=== PATIENT | female | born 1995 | race Caucasian/White ===

== ENCOUNTER 2018-05-30 06:28 | Emergency (ER) | END 2018-05-30 07:03 | disposition home or self-care (01) ==

== ENCOUNTER 2018-06-20 19:50 | Emergency (ER) | END 2018-06-20 20:14 | disposition home or self-care (01) ==

== ENCOUNTER 2018-06-20 20:20 | Outpatient (CLI) | END 2018-06-20 22:27 | disposition home or self-care (01) ==

== ENCOUNTER 2018-10-02 14:36 | Inpatient (IN) | payer MEDICAID ==
[~2018-10-02] VITALS: Ht 142.2 cm; Wt 63.1 kg
[~2018-10-02 14:36] MED LIST: PREN-93 PO
[2018-10-02 14:59] VITALS: BP 116/67; PULSE 83; RESP 20; Ht 142.2 cm; Wt 63.1 kg
--- NOTE | 2018-10-02 17:46 | TRIAGE ---
OB Triage Datetime Report Generated by CPN: 10/02/2018 17:45 Datetime: 10/02/2018 17:36 Vaginal Exam Dilatation (cms): 3.0 Effacement (%): 80 Station: -2 Exam By: timothy Membrane Status: Intact Vaginal Bleeding: Normal Show Cervix, Consistency: Soft Cervix, Position: Posterior Presentation 'A': Cephalic Datetime: 10/02/2018 16:26 Labor Evaluation Frequency: 1-5 Monitor Mode: External Duration (sec)2399: 50-100 Quality: Mild Pattern: Normal: <= 5 Contractions in 10 Minutes Resting Tone Amistad: Relaxed Heart Rate FHR Baseline Rate: 130 Monitor Mode: External US Variability: Moderate 6-25 bpm Accelerations: 15X15 Decelerations: None Category: Category I Datetime: 10/02/2018 16:00 Labor Evaluation Frequency: 4-8 Monitor Mode: External Duration (sec)2399: 50-100 Quality: Mild Pattern: Normal: <= 5 Contractions in 10 Minutes Resting Tone Amistad: Relaxed Heart Rate FHR Baseline Rate: 135 Monitor Mode: External US Variability: Moderate 6-25 bpm Accelerations: 15X15 Decelerations: None Category: Category I Datetime: 10/02/2018 15:47 Comments: US AT BEDSIDE Datetime: 10/02/2018 15:45 Comments: U/S TECH AT BEDSIDE Datetime: 10/02/2018 15:00 Labor Evaluation Frequency: 1-6 Monitor Mode: External Duration (sec)2399: 30-100 Quality: Mild Pattern: Normal: <= 5 Contractions in 10 Minutes Resting Tone Amistad: Relaxed Heart Rate FHR Baseline Rate: 135 Monitor Mode: External US Variability: Moderate 6-25 bpm Accelerations: 15X15 Decelerations: None Category: Category I Datetime: 10/02/2018 14:37 Time of Arrival: 10/02/2018 14:18 EGA: 38.6 Arrived By: Wheelchair Arrived From: Home Chief Complaint: UCS Movement: Present Contractions: Regular Time Contractions Began: 10/02/2018 05:00 Contractions: 5 MIN Rupture of Membranes: Denies Vaginal Bleeding: None Vaginal Discharge: Denies Recent Sexual Intercouse: Denies Abdominal Trauma: Not Applicable Patient Complaints: Contractions Time Provider Notified: 10/02/2018 15:16 Provider Notified: HADADIAN Initial Plan: NST, SVE Vaginal Exam Dilatation (cms): 1.5 Effacement (%): 50 Station: -2 Exam By: TIMOTHY Datetime: 10/02/2018 14:35 Assessment Type: Triage Maternal Assessment Level of Consciousness: Fully Conscious DTR's/Clonus: DTRs 2+; No Clonus Headache: Denies Blurred Vision: No Respiratory Effort: Unlabored; Regular Rhythm; Equal Expansion Breath Sounds, Left: Clear and Equal Breath Sounds, Right: Clear and Equal Nausea/Vomiting: Denies RUQ Epigastric Pain: Denies Lower Extremities Edema: None Degree: None Upper Extremities Edema: None Degree: None Facial Edema: None Fall Risk Assessment History of Falling: (0) No Secondary Diagnosis: (0) No Ambulatory Aid: (0) Bedrest/Nurse Assist IV Therapy: (0) No Gait: (0) Normal/Bedrest/Immobile Mental Status: (0) Oriented to Own Ability Fall Score: 0 Fall Risk Score Definition: No Risk: No action required Datetime: 06/20/2018 20:29 Fall Score: 0 Fall Risk Score Definition: No Risk: No action required Datetime: 06/20/2018 20:23 EGA: 24.0
--- NOTE | 2018-10-02 17:50 | HP ---
Date/Time of Note Date/Time of Note DATE: 10/02/18 TIME: 17:47 OB - History Hx of Present Free Text/Dictation 23-year-old 2 para 1 at 38 weeks and 6 days of gestation with estimated date of delivery October 10, 2018 Patient presents with regular contractions She reports positive movement, denies any vaginal bleeding or leaking fluid GBS status is unknown : 2 Para: 1 Care: Good Care Obstetrical Complications: None Medical Complications: None Past Family/Social History * Past Medical, Surgical, Family and Obstetric Histories reviewed from chart. OB Admission Exam Vital Signs Vital Signs Vital Signs Date Temp Pulse Resp B/P (MAP) Pulse Ox O2 O2 Flow FiO2 Time Delivery Rate 10/02/18 97.7 83 20 116/67 Room Air 14:59 (83) Physical Exam HEENT: WNL Heart: Rhythm Normal Lungs: Clear, Equal Abdomen: WNL Extremities: Normal Reflexes: Normal Cervical Dilatation: 3cm Effacement: 75% Station: -2 Membranes: Intact Heart Rate: 140's Accelerations: Accelerations Present Decelerations: No Decelerations Varibility: Moderate Contractions on Admission: < 5 Minutes Apart Intensity: Moderate Last 72 hours Lab Results PROCEDURE: US OB biophysical profile. CLINICAL INDICATION: decreased movements, pain TECHNIQUE: Multiple sonographic images of the pelvis were obtained. The images were reviewed on a PACS workstation. COMPARISON: No prior studies are available for comparison. FINDINGS: There is a single live intrauterine gestation. Cardiac activity is present with 132 beats per minute. There is a vertex presentation. The placenta is anterior. There is no evidence of placental abruption. There is a normal amount of amniotic fluid with an SHERICE = 12.5 cm. Biophysical profile: movement 2/2 tone 2/2. breathing 2/2 SHERICE 2/2 Total 88 RPTAT: AA . IMPRESSION: Normal biophysical profile. . .Ramon Alejandro MD, Date Time Electronically viewed and signed by .Ramon Alejandro MD, MD on 10/02/2018 16:04 .S/ CC: PAUL ALVES [id number] PROCEDURE: Obstetrical ultrasound. CLINICAL INDICATION: , evaluation. Pelvic pain. TECHNIQUE: Transabdominal sonographic images of the uterus obtained after first trimester, greater than 14 weeks gestation. Single intrauterine gestation present. Complete anatomic survey is not performed in this examination; if needed an additional dedicated examination can be performed for complete anatomic survey. COMPARISON: US PELVIS 10/02/2018 FINDINGS: Single intrauterine gestation. There is a cephalic presentation. Measurements were made in order to determine age. The results are as follows: BPD = 35 weeks 3 day(s) HC = 37 weeks 2 day(s) AC = 37 weeks 5 day(s) FL = 35 weeks 3 day(s) SHERICE (cm) = not measured Heart rate = 137 beats per minute The placenta is anterior. There is no evidence for an abruption or placenta previa. Ovaries are not visualized. IMPRESSION: Single intrauterine gestation of approximately 36 weeks 3days by ultrasound criteria. [place] estimated weight = 3044 g; 20 percentile for gestational age of 38 weeks 6 days. RPTAT: AADD .Stalin Mason MD, MD Date Time Electronically viewed and signed by .Stalin Mason MD, MD on 10/02/2018 19:54 .B/ CC: PAUL ALVES [phone] OB Assessment/Plan Reason for admission: active labor Induction Method: per Pitocin Protocol Other plan: Admit to labor and delivery Antibiotics for GBS prophylaxis Oxytocin augmentation Pain meds as needed YOSSI KINSEY MD Oct 02, 2018 17:50
[2018-10-02] MEDS ORDERED: OXYTOCIN 30 UNITS/LR 500 ML IV PRN (18:00)
[2018-10-02] MEDS ORDERED: BUTORPHANOL 2 MG INJ IV PRN (18:00)
[2018-10-02] MEDS ORDERED: METHYLERGONOVINE 0.2 MG INJ IM PRN (18:00)
[2018-10-02] MEDS ORDERED: IBUPROFEN 600 MG TAB PO PRN (18:00)
[2018-10-02] MEDS ORDERED: CARBOPROST 250 MCG INJ IM PRN (18:00)
[2018-10-02] MEDS ORDERED: MISOPROSTOL 200 MCG TAB PR PRN (18:00)
[2018-10-02] MEDS ORDERED: BUTORPHANOL 1 MG INJ IV PRN (18:00)
[2018-10-02] MEDS ORDERED: OXYTOCIN 30 UNITS/LR 500 ML IV SCH ×3 (18:00)
[2018-10-02] MEDS ORDERED: LIDOCAINE 1% (MPF) 30 ML INJ INJ PRN (18:00)
[2018-10-02] MEDS: LACTATED RINGER'S 1,000 ML IV SCH ×2 (18:30→19:37)
[2018-10-02] MEDS ORDERED: FENTAnyl 2MCG/ML-ROPIV 0.2% 100 ML ONE (19:46)
--- NOTE | 2018-10-02 19:49 | PREAC ---
Date/Time of Note Date/Time of Note DATE: 10/02/18 TIME: 19:48 Anesthesia Eval and Record Evaluation Time Pre-Procedure Interview DATE: 10/02/18 TIME: 19:48 Age 23 Sex female NPO: 8 hrs Preoperative diagnosis IUP Planned procedure L&D Epidural Past Medical History Past Medical History: None Surgery & Anesthesia Issues No known issue Meds Anticoagulation: No Beta Jannette within 24 hr: No Reason Beta Jannette not given: Pt. not on B-Jannette Reported Medications Vit No.124/Iron/FA ( Vitamin Tablet) 1 Each Tablet, 1 EACH PO, TAB 06/20/18 Current Medications Lactated Ringer's 1,000 ml @ 125 mls/hr Q8H IV Last administered on 10/02/18at 19:37; Admin Dose 125 MLS/HR; Start 10/02/18 at 17:45 Butorphanol Tartrate (Stadol) 1 mg Q2H PRN IV .PAIN; Start 10/02/18 at 18:00 Butorphanol Tartrate (Stadol) 2 mg Q2H PRN IV .PAIN; Start 10/02/18 at 18:00 Lidocaine (Xylocaine 1% (Mpf)) 30 ml ONCE PRN INJ .EPISIOTOMY; Start 10/02/18 at 18:00 Oxytocin/Lactated Ringer's 500 ml @ 500 mls/hr ONCE POST IV ; Start 10/02/18 at 18:00 Oxytocin/Lactated Ringer's 500 ml @ 125 mls/hr POST IV ; Start 10/02/18 at 18:00 Ibuprofen (Motrin) 600 mg ONCE PRN PO .PAIN 1-5; Start 10/02/18 at 18:00 Oxytocin/Lactated Ringer's 500 ml @ 0 mls/hr ONCE PRN IV .VAGINAL BLEEDING; Start 10/02/18 at 18:00 Methylergonovine Maleate (Methergine) 0.2 mg ONCE PRN IM .VAGINAL BLEEDING; Start 10/02/18 at 18:00 Carboprost Tromethamine (Hemabate) 250 mcg ONCE PRN IM .VAGINAL BLEEDING; Start 10/02/18 at 18:00 Misoprostol (Cytotec) 1,000 mcg ONCE PRN WI .VAGINAL BLEEDING; Start 10/02/18 at 18:00 Oxytocin/Lactated Ringer's 500 ml @ 0 mls/hr FOR AUGMENTATION IV ; Start 10/02/18 at 18:00 Meds reviewed: Yes Allergies Coded Allergies: No Known Allergy (Unverified , 10/02/18) Allergies Reviewed: Yes Labs/Studies Labs Reviewed: Reviewed by anesthesiologist Result Diagram: 10/02/18 1810 Laboratory Tests 10/02/18 18:10 test: Positive Studies: ECG Pre-procedure Exam Last vitals Vital Signs Date Temp Pulse Resp B/P (MAP) Pulse Ox O2 O2 Flow FiO2 Time Delivery Rate 10/02/18 97.7 83 20 116/67 Room Air 14:59 (83) Airway: Adequate mouth opening, Adequate thyromental dist Mallampati: Mallampati II Teeth: Normal Lung: Normal Heart: Normal ASA Physical Status ASA physical status: 2 Emergency: None Planned Anesthetic Neuraxial: Epidural Planned Pain Management Epidural, Parenteral pain med Pre-operative Attestations Prior to commencing anesthesia and surgery, the patient was re-evaluated, there was verification of: *The patient's identity *The results of appropriate recent lab work and preoperative vital signs *The above evaluation not changing prior to induction *Anesthetic plan, risk benefits, alternative and complications discussed with patient/family; questions answered; patient/family understands, accepts and wishes to proceed. CRISTHIAN BENITEZ MD Oct 02, 2018 19:49
[2018-10-03] MEDS: LACTATED RINGER'S 1,000 ML IV SCH (01:26)
[2018-10-03] MEDS ORDERED: DIPHENHYDRAMINE 50 MG INJ IV PRN (03:30)
[2018-10-03] MEDS ORDERED: NALOXONE (0.4 MG/ML) INJ IV PRN (03:30)
[2018-10-03] MEDS ORDERED: ONDANSETRON 4 MG INJ IV PRN ×2 (03:30→05:00)
[2018-10-03] MEDS ORDERED: FENTAnyl 2MCG/ML-ROPIV 0.2% 100 ML BAG EPI SCH (03:30)
[2018-10-03] MEDS ORDERED: OXYTOCIN 30 UNITS/LR 500 ML IV SCH (04:46)
[2018-10-03] MEDS ORDERED: CARBOPROST 250 MCG INJ IM PRN (05:00)
[2018-10-03] MEDS ORDERED: MAGNESIUM HYDROXIDE 30ML CUP PO PRN (05:00)
[2018-10-03] MEDS ORDERED: MISOPROSTOL 200 MCG TAB PR PRN (05:00)
[2018-10-03] MEDS ORDERED: WITCH HAZEL/GLYCERIN PAD PR PRN (05:00)
[2018-10-03] MEDS ORDERED: DIBUCAINE 1% 30 GM OINT TOP PRN (05:00)
[2018-10-03] MEDS ORDERED: OXYTOCIN 30 UNITS/LR 500 ML IV PRN (05:00)
[2018-10-03] MEDS ORDERED: ACETAMINOPHEN 325 MG TAB PO PRN (05:00)
[2018-10-03] MEDS ORDERED: BENZOCAINE 20% 56 ML SPRAY TOP PRN (05:00)
[2018-10-03] MEDS ORDERED: LANOLIN HPA 1 PKT TOP PRN (05:00)
[2018-10-03] MEDS ORDERED: METHYLERGONOVINE 0.2 MG INJ IM PRN (05:00)
--- NOTE | 2018-10-03 05:28 | LDN ---
Date/Time of Note Date/Time of Note DATE: 10/03/18 TIME: 04:48 Delivery Summary Term gestation Placenta Delivered: Spontaneously Meconium: none Episiotomy: No Laceration repair: Superficial laceration repaired with 4-0 chromic Anesthesia type: Epidural Estimated blood loss: 100 Sponge & Needle done & correct: Yes All needle counts correct: Yes Any foreign bodies felt in the: No Delivery Information Sex Infant Sex: male Apgars 1 Minute: 9 5 Minute: 9 Suctioning Nose & mouth suctioned at chaitanya: Yes Umbilical Cord Umbilical cord with: 3 Vessels Cord presentations: no nuchal cord Cord Blood was obtained: Yes Mother & Baby Disposition Disposition Baby's weight 7 pounds 2 ounces/ 3245 gr Mom & Baby to Maternity; Good: Yes Baby to NICU: No Copies To: CC: PAUL ALVES BAHAREH MD Oct 03, 2018 05:28
[2018-10-03 06:10] VITALS: BP 111/62; PULSE 73; RESP 18
[2018-10-03 07:55] VITALS: BP 106/57; PULSE 84; RESP 16
[2018-10-03] MEDS: SENNA/DOCUSATE NA (8.6MG/50MG) TAB PO PRN ×2 (08:51→21:13)
[2018-10-03] MEDS: IBUPROFEN 600 MG TAB PO PRN ×2 (08:52→15:57)
[2018-10-03] MEDS: LACTATED RINGER'S 1,000 ML IV* SCH ×2 (08:58→13:47)
[2018-10-03 11:44] VITALS: BP 110/73; PULSE 76; RESP 20
[2018-10-03 15:56] VITALS: BP 101/63; PULSE 73; RESP 20
[2018-10-03 20:35] VITALS: BP 114/68; PULSE 79; RESP 18
[2018-10-03] MEDS: ACETAMINOPHEN 325 MG TAB PO PRN (21:13)
[2018-10-04] VITALS: BP 90/59; PULSE 75; RESP 19
[2018-10-04] MEDS: IBUPROFEN 600 MG TAB PO PRN ×4 (01:11→17:45)
[2018-10-04] MEDS: ACETAMINOPHEN 325 MG TAB PO PRN ×2 (01:17→06:30)
[2018-10-04 04:00] VITALS: BP 88/50; PULSE 67; RESP 19
[2018-10-04 08:00] VITALS: BP 97/55; PULSE 85; RESP 18
[2018-10-04] MEDS ORDERED: INFLUENZA VIRUS VACCINE 0.5 ML (DISPENSING) IM* ONE (10:00)
[2018-10-04 16:00] VITALS: BP 89/53; PULSE 70; RESP 18
[2018-10-04 19:07] VITALS: BP 122/75; RESP 18
[2018-10-04 20:50] VITALS: BP 89/53; PULSE 75; RESP 18
[2018-10-05] MEDS: IBUPROFEN 600 MG TAB PO PRN ×2 (00:11→12:04)
[2018-10-05 04:00] VITALS: BP 92/56; PULSE 65; RESP 17
[2018-10-05] MEDS: ACETAMINOPHEN 325 MG TAB PO PRN (06:00)
--- NOTE | 2018-10-05 10:51 | PAC ---
Date/Time of Note Date/Time of Note DATE: 10/05/18 TIME: 10:50 Post-Anesthesia Notes Post-Anesthesia Note Last documented vital signs Vital Signs Date Temp Pulse Resp B/P (MAP) Pulse Ox O2 O2 Flow FiO2 Time Delivery Rate 10/05/18 98.0 65 17 92/56 (68) Room Air 04:00 Activity: WNL Respiratory function: WNL Cardiovascular function: WNL Mental status: Baseline Pain reasonably controlled: Yes Hydration appropriate: Yes Nausea/Vomiting absent: Yes Comments BP:112/56, P:78, spo2:100%, T:98,8 CRISTHIAN BENITEZ MD Oct 05, 2018 10:51
--- NOTE | 2018-10-06 21:30 | PN ---
Date/Time of Note Date/Time of Note DATE: 10/06/18 TIME: 21:27 OB Subjective Subjective Subjective Late entry note. Patient seen on 10/04/2018 PPD# 1 Patient is doing well. She denies nausea, vomiting, shortness of breath, chest pain, headache. She has been ambulating without difficulty, tolerating regular diet. Pain is well controlled on current medications OB Objective Objective Objective General: AAO X 3, comfortable, NAD, appropriate mood and affect. ABD: +BS. Soft, non-tender. Uterus 2 cm below umbilicus Flank: No CVA tenderness (B/L) LE: Mild edema. No clubbing, cyanosis, thigh or calf tenderness (B/L). Homans 'sign is negative OB Assessment/Plan Other plan: 23-year-old 2 para 2002 s/p normal vaginal delivery at 38 weeks and 6 days. PPD#1 - AF, VSS - Contraception methods with R/B/A/FR discussed - Continue care - Discharge home tomorrow - Rx and instruction given - Follow up in 2 and 6 weeks at clinic PAUL ALVES Oct 06, 2018 21:30
--- NOTE | 2018-10-06 21:33 | DS ---
Date/Time of Note Date/Time of Note DATE: 10/06/18 TIME: 21:32 Obstetrical Discharge Record Final Diagnosis Final Diagnosis: Term delivered Other Final Diagnosis Late entry note. Patient seen on 23-year-old 2 para 2002 s/p normal vaginal delivery at 38 weeks and 6 days. PPD#2. She is ambulating and tolerating regular she is voiding without difficulty. Pain is controlled on current medication. - AF, VSS - Contraception methods with R/B/A/FR discussed - Continue care - Discharge home tomorrow - Rx and instruction given - Follow up in 2 and 6 weeks at clinic Vaginal Delivery Obstetrical Delivery: Spontaneous Condition on Discharge Physical Assessment Voiding: Yes Bowel Movement: Yes Breast: Soft, non-tender Fundus: Firm Calf Tenderness: No Patient Condition: Stable PAUL ALVES Oct 06, 2018 21:33
== END 2018-10-05 16:40 | disposition home or self-care (01) | DRG 807 ==
LOC: OBT 14:36 → L-D 14:36 → OBT 17:40 → PP1 10-03 06:30
PROVIDERS: ADMIT Obstetrics & Gynecology; ATTEND Obstetrics & Gynecology
PROC: 10E0XZZ Delivery of Products of Conception, External Approach (ICD-10-PCS; principal; 2018-10-03)
PROC: 0HQ9XZZ Repair Perineum Skin, External Approach (ICD-10-PCS; 2018-10-03)
DX: O70.0 First degree perineal laceration during delivery (principal); Z37.0 Single live birth; Z3A.38 38 weeks gestation of pregnancy
CPT/HCPCS: 62319; 76815; 76818; 81001; 85025; 85610; 85730; 86592; 86850; 86900; 86901; 87086; 87340; G0463; J2590; J3010; J7120

== ENCOUNTER 2018-12-10 02:51 | Emergency (ER) | payer MEDICAID ==
[~2018-12-10] VITALS: Ht 154.9 cm; Wt 55.6 kg
[2018-12-10 02:56] VITALS: RESP 17; Ht 154.9 cm; Wt 55.6 kg
[2018-12-10] MEDS ORDERED: ACETAMINOPHEN 500 MG TAB PO STA (04:09)
[2018-12-10] MEDS ORDERED: IBUPROFEN 600 MG TAB PO ONE (04:30)
[2018-12-10] MEDS ORDERED: DEXAMETHASONE 10 MG/ML 1 ML INJ IM ONE (04:30)
[2018-12-10] MEDS ORDERED: ACET500C5 PO (04:52)
[2018-12-10] MEDS ORDERED: IBUP-1542 PO (04:52)
--- NOTE | 2018-12-10 05:21 | ERD ---
ER Documentation Chief Complaint Chief Complaint C/O ST, FEVER AND [place] X3 DAYS HPI History of Present Illness: 23-year-old female who denies past medical history coming in today with complaint of sore throat, subjective fever, headache for the past 3 days. 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 Patient is able to tolerate p.o. fluids, but pain is present. At home pharmacological/nonpharmacological treatment for symptoms: Denies Denies social concerns; Denies recent foreign travel ROS All systems reviewed and are negative except as per history of present illness. Medications Home Meds Active Scripts Acetaminophen* (Tylophen*) 500 Mg Capsule, 2 CAP PO Q6 PRN for PAIN AND OR ELEVATED TEMP, #20 CAP Prov:MICHAEL CRAIG V [place] ASSESSOR 12/10/18 Ibuprofen* (Motrin*) 600 Mg Tab, 600 MG PO Q8 for PAIN/INFLAMMATION, #30 TAB Prov:MICHAEL CRAIG V [place] ASSESSOR 12/10/18 Reported Medications Vit No.124/Iron/FA ( Vitamin Tablet) 1 Each Tablet, 1 EACH PO, TAB 06/20/18 Allergies Allergies: Coded Allergies: No Known Allergy (Unverified , 10/02/18) PMhx/Soc Medical and Surgical Hx: pt denies Medical Hx, pt denies Surgical Hx Hx Alcohol Use: No Hx Substance Use: No Hx Tobacco Use: No Smoking Status: Never smoker FmHx Family History: No diabetes, No coronary disease Physical Exam Vitals Vital Signs Date Temp Pulse Resp B/P (MAP) Pulse Ox O2 O2 Flow FiO2 Time Delivery Rate 12/10/18 100.1 04:31 12/10/18 99.8 105 17 110/59 98 02:56 (76) Physical Exam Const: No acute distress Head: Atraumatic Eyes: Normal Conjunctiva ENT: Normal External Ears, Nose; erythematous oropharynx, 4+ tonsils, tonsillar exudate Neck: Full range of motion. No meningismus. Resp: Clear to auscultation bilaterally Cardio: Regular rate and rhythm, no murmurs Abd: Soft, non tender, non distended. Normal bowel sounds Skin: No petechiae or rashes Back: No midline or flank tenderness Ext: No cyanosis, or edema Neur: Awake and alert Psych: Normal Mood and Affect Results 24 hrs Current Medications Medications Dose Sig/Toshia Start Time Status Last (Trade) Ordered Route PRN Stop Time Admin Dose Reason Admin 1,000 mg ONCE STAT 12/10/18 DC 12/10/18 Acetaminophen PO 04:09 04:31 (Tylenol 12/10/18 04:10 Tab) Ibuprofen 600 mg ONCE ONCE 12/10/18 DC 12/10/18 (Motrin) PO 04:30 04:31 12/10/18 04:31 10 mg ONCE ONCE 12/10/18 DC 12/10/18 Dexamethasone IM 04:30 04:32 (Decadron) 12/10/18 04:31 Penicillin 1,200,000 ONCE ONCE 12/10/18 G units IM 05:30 Benzathine 12/10/18 05:31 (Bicillin La) Procedures/MDM ED course includes a thorough examination and history. Medications: Acetaminophen, ibuprofen Imaging: Labs: Rapid strep Low suspicion for life-threatening medical emergency. Low suspicion for HEENT medical emergency that requires hospitalization at this time. Low suspicion for airway compromise. Otherwise healthy patient presenting with constellation of symptoms likely representing Streptococcus pharyngitis as characterized by history, physical exam findings, lab findings. Rapid strep positive. Patient reassessmen @0516: Patient hemodynamically stable. No respiratory distress, otherwise relatively well appearing and nontoxic. Patient educated that medications are safe during . Will give penicillin G before discharge. Patient is at high risk of transmitting infection to her 2-month-old infant, so I feel that penicillin G would be the best option for patient and child. Disposition given. Patient educated on diagnoses, prescriptions, follow-up care, return precautions. Strict return precautions given for worsening condition; questions answered discharge. Disposition for discharge with followup in 2 days with PCP/clinic. Departure Diagnosis: Primary Impression: Streptococcal pharyngitis Condition: Stable Patient Instructions: Pharyngitis, Strep (Confirmed) Referrals: COMMUNITY CLINICS YOU HAVE RECEIVED A MEDICAL SCREENING EXAM AND THE RESULTS INDICATE THAT YOU DO NOT HAVE A CONDITION THAT REQUIRES URGENT TREATMENT IN THE EMERGENCY DEPARTMENT. FURTHER EVALUATION AND TREATMENT OF YOUR CONDITION CAN WAIT UNTIL YOU ARE SEEN IN YOUR DOCTORS OFFICE WITHIN THE NEXT 1-2 DAYS. IT IS YOUR RESPONSIBILITY TO MAKE AN APPOINTMENT FOR FOLOW-UP CARE. IF YOU HAVE A PRIMARY DOCTOR --you should call your primary doctor and schedule an appointment IF YOU DO NOT HAVE A PRIMARY DOCTOR YOU CAN CALL OUR PHYSICIAN REFERRAL HOTLINE AT IF YOU CAN NOT AFFORD TO SEE A PHYSICIAN YOU CAN CHOSE FROM THE FOLLOWING [facility] CLINICS [facility] [address] [facility] [address] [facility] [address] [facility] [address] [facility]. [facility] [address] [facility]. [facility] [address] [facility]. [facility] YOU HAVE RECEIVED A MEDICAL SCREENING EXAM AND THE RESULTS INDICATE THAT YOU DO NOT HAVE A CONDITION THAT REQUIRES URGENT TREATMENT IN THE EMERGENCY DEPARTMENT. FURTHER EVALUATION AND TREATMENT OF YOUR CONDITION CAN WAIT UNTIL YOU ARE SEEN IN YOUR DOCTORS OFFICE WITHIN THE NEXT 1-2 DAYS. IT IS YOUR RESPONSIBILITY TO MAKE AN APPOINTMENT FOR FOLOW-UP CARE. IF YOU HAVE A PRIMARY DOCTOR --you should call your primary doctor and schedule and appointment IF YOU DO NOT HAVE A PRIMARY DOCTOR YOU CAN CALL OUR PHYSICIAN REFERRAL HOTLINE AT . IF YOU CAN NOT AFFORD TO SEE A PHYSICIAN YOU CAN CHOSE FROM THE FOLLOWING [facility] INSTITUTIONS: [facility] [address] [place] [address] [facility] [address] [place] [address] [facility] [address] [place] [address] Additional Instructions: Muchas la nena por permitirnos participar en macias cuidado. Macias vanita y seguridad es nuestra principal prioridad en [facility]. Es importante leer todas las instrucciones de thad y la educacin que se proporcionan en macias paquete de thad. * El ibuprofeno y el paracetamol son seguros para usar lyric la lactancia. * Llame a macias mdico de atencin primaria MAANA para laure rosa maria lyric los prximos 2 a 4 montoya y lleve toda la informacin y los medicamentos recetados. Llene las recetas y siga exactamente las instrucciones de la etiqueta. --Ibuprofeno es un medicamento que ayuda con el dolor / inflamacin. En la dosis de 600 a 800 mg, esto ayudar con la inflamacin / hinchazn. Cornish juan medicamento segn las indicaciones. --Acetaminofeno jacquelyn medicamento para el dolor y / o fiebre. Cornish juan medi camento segn sea necesario para el dolor leve a moderado. Juan medicamento no causar somnolencia. Si los sntomas empeoran y macias proveedor no est disponible, regrese inmediatamente al Departamento de Emergencias. ------ Thank you very much for allowing us to participate in your care. Your health and safety is our top priority at [facility]. It is important to read all discharge instructions and education provided in your discharge packet. *Ibuprofen and acetaminophen are both safe to use during breast-feeding.* Call your primary care doctor TOMORROW for an appointment during the next 2-4 days and bring all the information and medications prescribed. Have prescriptions filled and follow precisely the directions on the label. --Ibuprofen is a medication that will help with pain/inflammation. At the dosage of 600 to 800 mg, this will help with inflammation/swelling. Take this medication as prescribed. --Acetaminophen as a medication for pain and/or fever. Take this medication as needed for mild to moderate pain. This medication will not cause drowsiness. If the symptoms get worse and your provider is unavailable, return to the Emergency Department immediately. MICHAEL CRAIG NP December 10, 2018 05:21
[2018-12-10 05:30] VITALS: BP 110/59; PULSE 94
[2018-12-10] MEDS ORDERED: PENICILLIN G BENZ 1.2 MIL UNIT SYG IM ONE (05:30)
== END 2018-12-10 05:31 | disposition home or self-care (01) ==
LOC: FTE 02:51
DX: J02.0 Streptococcal pharyngitis (principal)
CPT/HCPCS: 87880; 96372; J0561; J1100; Z7502; Z7610